=== PATIENT | female | born 1995 | race Caucasian/White ===

== ENCOUNTER → 2024-02-13 | Outpatient (CLI) | payer OTHER ==
[2024-02-13 17:14] LABS: BASO % 0.5 % (0.0-1.0); EOS # 0.1 10^3/uL (0.0-0.5); HEMATOCRIT 42.7 % (36.0-47.0); HEMOGLOBIN 14.3 g/dl (12.0-15.5); LYMPH # 1.7 10^3/uL (1.5-5.0); LYMPH % 28.4 % (24.0-44.0); MEAN CORPUSCULAR HEMOGLOBIN 31.9 pg (27.0-33.0); MEAN CORPUSCULAR HGB CONC 33.5 g/dl (32.0-36.5); MEAN CORPUSCULAR VOLUME 95.3 fl (80.0-96.0); MONO # 0.5 10^3/uL (0.0-0.8); MONO % 7.8 % (2.0-8.0); NEUTROPHILS # 3.7 10^3/uL (1.5-8.5); NEUTROPHILS % 62.1 % (36.0-66.0); PLATELET COUNT, AUTOMATED 182 10^3/uL (150-450); RED BLOOD COUNT 4.48 10^6/uL (4.00-5.40); WHITE BLOOD COUNT 5.9 10^3/uL (4.0-10.0)
[2024-02-13 17:24] LABS: ALBUMIN 4.2 G/DL (3.2-5.2); ALKALINE PHOSPHATASE 57 U/L (46-116); ALT/SGPT 14 U/L (7.0-40); AST/SGOT < 8 U/L (<34); BILIRUBIN,TOTAL 0.7 MG/DL (0.3-1.2); BLOOD UREA NITROGEN 13 MG/DL (9-23); CALCIUM LEVEL 9.4 MG/DL (8.5-10.1); CARBON DIOXIDE LEVEL 26 MMOL/L (20-31); CHLORIDE LEVEL 107 MMOL/L (98-107); FREE T4 1.07 NG/DL (0.89-1.76); GLOMERULAR FILTRATION RATE > 60.0 (>60); GLUCOSE, FASTING 84 MG/DL (60-100); IRON (FE) 142 UG/DL (50-170); PERCENT SATURATION 44.9 % (13.2-45.0); POTASSIUM SERUM 4.4 MMOL/L (3.5-5.1); SODIUM LEVEL 138 MMOL/L (136-145); THYROID STIMULATING HORMONE 0.668 uIU/ML (0.55-4.78); TOTAL IRON BINDING CAPACITY 316 UG/DL (250-425); TOTAL PROTEIN 7.4 G/DL (5.7-8.2)
[2024-02-13 17:25] LABS: FOLATE 7.8 NG/ML (>5.4)
[2024-02-13 17:26] LABS: VITAMIN B12 LEVEL 327 PG/ML (211-911)
== END ==
LOC: M WUC 10:41
PROVIDERS: ATTEND Nurse Practitioner Adult Health
DX: L65.9 Nonscarring hair loss, unspecified (principal)

== ENCOUNTER → 2024-02-25 | Outpatient (CLI) | payer OTHER ==
[2024-02-25 10:33] LABS: URIC ACID 4.1 MG/DL (3.1-7.8)
[2024-02-25 10:34] LABS: C REACTIVE PROTEIN QUANTITATIV < 0.40 MG/DL (<1.0)
[2024-02-26 12:32] LABS: CYCLIC CITRULLINATED PEPTIDE < 16 UNITS (<20)
[2024-02-26 14:24] LABS: RHEUMATOID FACTOR QUANT 3.9 IU/ML (<14)
[2024-02-26 15:23] LABS: ANA PATTERN Nuclear, Nucleolar (NEGATIVE); ANA PATTERN 2 Nuclear, Homogeneous; ANA SCREEN, IFA POSITIVE (NEGATIVE); ANA TITER 2 1:40 titer (NEGATIVE); ANA TITER 3 1:40 titer (<1:40)
== END ==
LOC: M WUC 08:39
PROVIDERS: ATTEND Nurse Practitioner Adult Health
DX: R76.0 Raised antibody titer (principal); L65.9 Nonscarring hair loss, unspecified

== ENCOUNTER → 2024-09-09 | Outpatient (REF) | payer OTHER ==
[2024-09-09 13:28] LABS: APPEARANCE, URINE CLEAR (CLEAR); BACTERIA, URINE AUTO NEGATIVE (NEGATIVE); BILIRUBIN, URINE AUTO NEGATIVE (NEGATIVE); BLOOD, URINE BLOOD NEGATIVE (NEGATIVE); COLOR, URINE STRAW (YELLOW); GLUCOSE, URINE (UA) AUTO NEGATIVE (NEGATIVE); KETONE, URINE AUTO NEGATIVE (NEGATIVE); LEUKOCYTE ESTERASE, URINE AUTO NEGATIVE (NEGATIVE); MUCUS, URINE SMALL (NEGATIVE); NITRITE, URINE AUTO NEGATIVE (NEGATIVE); PROTEIN, URINE AUTO NEGATIVE (NEGATIVE); RBC, URINE AUTO 0 /HPF (0-3); SPECIFIC GRAVITY URINE AUTO 1.006 (1.002-1.035); SQUAMOUS EPITHELIAL CELL UR AU 0 /HPF (0-6); UROBILINOGEN, URINE AUTO 0.2 mg/dL (0.0-2.0); WBC, URINE AUTO 0 /HPF (0-3)
[2024-09-09 14:01] LABS: CREATININE,RANDOM URINE 40.6 MG/DL
[2024-09-09 14:07] LABS: TOTAL PROTEIN,RANDOM URINE < 6.0 MG/DL (0.0-14.0)
[2024-09-09 14:22] LABS: BASO % 0.6 % (0.0-1.0); EOS # 0.1 10^3/uL (0.0-0.5); EOS % 0.9 % (0.0-3.0); HEMATOCRIT 42.2 % (36.0-47.0); HEMOGLOBIN 13.9 g/dl (12.0-15.5); LYMPH # 1.4 10^3/uL (1.5-5.0); LYMPH % 21.2 % (24.0-44.0); MEAN CORPUSCULAR HEMOGLOBIN 31.2 pg (27.0-33.0); MEAN CORPUSCULAR HGB CONC 32.9 g/dl (32.0-36.5); MEAN CORPUSCULAR VOLUME 94.8 fl (80.0-96.0); MONO # 0.3 10^3/uL (0.0-0.8); MONO % 4.9 % (2.0-8.0); NEUTROPHILS # 4.9 10^3/uL (1.5-8.5); NEUTROPHILS % 72.1 % (36.0-66.0); PLATELET COUNT, AUTOMATED 194 10^3/uL (150-450); RED BLOOD COUNT 4.45 10^6/uL (4.00-5.40); WHITE BLOOD COUNT 6.8 10^3/uL (4.0-10.0)
[2024-09-09 14:29] LABS: ERYTHROCYTE SEDIMENTATION RATE 8 mm/hr (0-20)
[2024-09-09 14:52] LABS: ALBUMIN 4.5 G/DL (3.2-5.2); ALKALINE PHOSPHATASE 60 U/L (35-104); ALT/SGPT 20 U/L (7.0-40); AST/SGOT 8 U/L (<34); BILIRUBIN,TOTAL 0.7 MG/DL (0.3-1.2); BLOOD UREA NITROGEN 13 MG/DL (9-23); C REACTIVE PROTEIN QUANTITATIV < 0.50 MG/DL (<1.0); CALCIUM LEVEL 9.6 MG/DL (8.5-10.1); CARBON DIOXIDE LEVEL 26 MMOL/L (20-31); CHLORIDE LEVEL 109 MMOL/L (98-107); CREATININE FOR GFR 0.57 MG/DL (0.55-1.30); GLOMERULAR FILTRATION RATE > 60.0 (>60); GLUCOSE, FASTING 79 MG/DL (60-100); POTASSIUM SERUM 4.1 MMOL/L (3.5-5.1); SODIUM LEVEL 140 MMOL/L (136-145)
[2024-09-09 14:53] LABS: COMPLEMENT C3 123.8 MG/DL (82.0-160.0); COMPLEMENT C4 18.5 MG/DL (12-36)
[2024-09-09 15:06] LABS: HEPATITIS B SURFACE ANTIGEN NEGATIVE (NEGATIVE)
[2024-09-09 15:42] LABS: HEPATITIS C VIRUS ABY INDEX < 0.02 INDEX (<0.8)
[2024-09-10 14:32] LABS: HEPATITIS B CORE ANTIBODY IGG NON-REACTIVE (NON-REACTIVE)
== END ==
LOC: M SFHCRHEU 09:14
PROVIDERS: ATTEND Internal Medicine Rheumatology
DX: R76.8 Other specified abnormal immunological findings in serum (principal); L65.9 Nonscarring hair loss, unspecified; R21 Rash and other nonspecific skin eruption

== ENCOUNTER → 2024-11-15 | Outpatient (REF) | payer OTHER ==
[2024-11-15 11:02] LABS: CREATININE,RANDOM URINE 45.2 MG/DL
[2024-11-15 11:08] LABS: TOTAL PROTEIN,RANDOM URINE < 6.0 MG/DL (0.0-14.0)
[2024-11-15 12:00] LABS: Trichomonas vaginalis (AMP) NOT DETECTED (NEGATIVE)
[2024-11-15 12:24] LABS: GC DNA AMPLIFICATION NEGATIVE (NEGATIVE)
== END ==
LOC: M SFHCWAGY 10:07
PROVIDERS: ATTEND Obstetrics & Gynecology
DX: O10.011 Pre-existing essential hypertension complicating pregnancy, first trimester (principal)

== ENCOUNTER → 2024-11-19 | Outpatient (CLI) | payer OTHER ==
[2024-11-19 13:26] LABS: HEMATOCRIT 36.1 % (36.0-47.0); HEMOGLOBIN 12.2 g/dl (12.0-15.5); MEAN CORPUSCULAR HEMOGLOBIN 31.9 pg (27.0-33.0); MEAN CORPUSCULAR HGB CONC 33.8 g/dl (32.0-36.5); MEAN CORPUSCULAR VOLUME 94.3 fl (80.0-96.0); PLATELET COUNT, AUTOMATED 185 10^3/uL (150-450); RED BLOOD COUNT 3.83 10^6/uL (4.00-5.40); WHITE BLOOD COUNT 10.5 10^3/uL (4.0-10.0)
[2024-11-19 13:47] LABS: URIC ACID 4.3 MG/DL (3.1-7.8)
[2024-11-19 13:49] LABS: LDH LACTATE DEHYDROGENASE 122 U/L (120-246)
[2024-11-19 13:50] LABS: ALT/SGPT 15 U/L (7.0-40); AST/SGOT < 8 U/L (<34); BILIRUBIN,TOTAL 0.5 MG/DL (0.3-1.2); CREATININE FOR GFR 0.65 MG/DL (0.55-1.30); GLOMERULAR FILTRATION RATE > 60.0 (>60)
[2024-11-19 14:16] LABS: HIV 1&2 SCREEN NEGATIVE (NEGATIVE)
[2024-11-19 14:24] LABS: HEPATITIS C VIRUS ABY INDEX 0.05 INDEX (<0.8)
== END ==
LOC: M PLALAB 11:36
PROVIDERS: ATTEND Obstetrics & Gynecology
DX: O10.011 Pre-existing essential hypertension complicating pregnancy, first trimester (principal)

== ENCOUNTER → 2025-04-01 | Outpatient (CLI) | payer OTHER ==
[2025-04-01 13:05] LABS: GLUCOSE CHALLENGE TEST 1 HOUR 55 MG/DL (LESS THAN 140)
[2025-04-01 13:11] LABS: PLATELET COUNT, AUTOMATED 188 10^3/uL (150-450)
[2025-04-01 13:38] LABS: HIV 1&2 SCREEN NEGATIVE (NEGATIVE)
[2025-04-01 13:46] LABS: HEPATITIS C VIRUS ABY INDEX < 0.02 INDEX (<0.8)
[2025-04-01 14:19] LABS: Trichomonas vaginalis (AMP) NOT DETECTED (NEGATIVE)
[2025-04-01 14:44] LABS: GC DNA AMPLIFICATION NEGATIVE (NEGATIVE)
== END ==
LOC: M PLALAB 10:18
PROVIDERS: ATTEND Obstetrics & Gynecology
DX: Z33.1 Pregnant state, incidental (principal)

== ENCOUNTER → 2025-05-02 | Outpatient (CLI) | payer OTHER | LOC: M WHC 06:48 | PROVIDERS: ATTEND Obstetrics & Gynecology | DX: O10.013 Pre-existing essential hypertension complicating pregnancy, third trimester (principal); Z3A.30 30 weeks gestation of pregnancy ==

== ENCOUNTER → 2025-06-01 | Outpatient (REF) | payer OTHER | LOC: M PLALAB 11:01 | PROVIDERS: ATTEND Student in an Organized Health Care Education/Training Program | DX: Z3A.35 35 weeks gestation of pregnancy (principal) ==

== ENCOUNTER → 2025-06-07 | Outpatient (CLI) | payer OTHER | LOC: M WHC 06:58 | PROVIDERS: ATTEND Advanced Practice Midwife | DX: O10.013 Pre-existing essential hypertension complicating pregnancy, third trimester (principal) ==

== ENCOUNTER → 2025-06-15 | Outpatient (CLI) | payer OTHER ==
[~2025-06-15] MED LIST: ASPI81TA26 PO; LABE100T40 PO; MULTTAB20 PO; PREN200C PO
[2025-06-15 15:26] LABS: PLATELET COUNT, AUTOMATED 198 10^3/uL (150-450)
[2025-06-15 15:31] LABS: TOTAL PROTEIN,RANDOM URINE < 6.0 MG/DL (0.0-14.0)
[2025-06-15 15:54] LABS: LDH LACTATE DEHYDROGENASE 200 U/L (120-246)
[2025-06-15 15:55] LABS: ALT/SGPT 17 U/L (7.0-40); AST/SGOT 18 U/L (<34); CREATININE FOR GFR 0.59 MG/DL (0.55-1.30); GLOMERULAR FILTRATION RATE > 90.0 (>60)
== END ==
LOC: M PLALAB 13:46
PROVIDERS: ATTEND Advanced Practice Midwife
DX: O10.013 Pre-existing essential hypertension complicating pregnancy, third trimester (principal); Z3A.00 Weeks of gestation of pregnancy not specified

== ENCOUNTER 2025-06-24 16:04 | Inpatient (IN) | payer OTHER ==
[2025-06-24] VITALS (7 sets, daily range): BP systolic 142–169; BP diastolic 85–108; TEMP 99–99.2
[~2025-06-24] VITALS: Ht 152.4 cm; Wt 69.3 kg
[2025-06-24] MEDS ORDERED: LABE100T40 PO (16:31)
[2025-06-24] MEDS ORDERED: ASPI81TA26 PO (16:31)
[2025-06-24] MEDS ORDERED: PREN200C PO (16:31)
[2025-06-24] MEDS ORDERED: MULTTAB20 PO (16:31)
[2025-06-24] MEDS ORDERED: HOME MED LIST COMPLETE! XX SCH (16:35)
[2025-06-24] MEDS ORDERED: METHYLERGONOVINE MALEATE 0.2 MG/ML 1 ML VIAL IM PRN (17:00)
[2025-06-24] MEDS ORDERED: OXYTOCIN DRIP 30 UNITS in IV 1 EA IV PRN (17:00)
[2025-06-24] MEDS ORDERED: TRANEXAMIC ACID INJection 1,000 MG in NS 100 ML IV PRN (17:00)
[2025-06-24 17:47] LABS: PLATELET COUNT, AUTOMATED 192 10^3/uL (150-450)
[2025-06-24 18:01] LABS: TOTAL PROTEIN,RANDOM URINE 8.2 MG/DL (0.0-14.0)
[2025-06-24] MEDS: miSOPROStol 50 MCG 1/2 TABLET PO SCH (18:04)
[2025-06-24] MEDS: LABETALOL 100 MG TAB PO SCH (18:05)
[2025-06-24 18:07] LABS: LDH LACTATE DEHYDROGENASE 314 U/L (120-246)
[2025-06-24 18:08] LABS: ALT/SGPT 21 U/L (7.0-40); AST/SGOT 33 U/L (<34); CREATININE FOR GFR 0.60 MG/DL (0.55-1.30); GLOMERULAR FILTRATION RATE > 90.0 (>60)
[2025-06-24 18:34] LABS: HIV 1&2 SCREEN NEGATIVE (NEGATIVE)
[2025-06-24 18:42] LABS: HEPATITIS C VIRUS ABY INDEX < 0.02 INDEX (<0.8)
[2025-06-25] VITALS (43 sets, daily range): BP systolic 132–185; BP diastolic 75–112; TEMP 98–99.6
[2025-06-25] MEDS: OXYTOCIN DRIP 30 UNITS in IV 1 EA IV SCH ×2 (00:30→16:33)
[2025-06-25] MEDS ORDERED: LABETALOL 100 MG/20 ML VIAL IV ONE (10:50)
[2025-06-25] MEDS: MAG Sulf (L&D) 4 GM/100 ML 4 GM in IV 1 EA IV ONE (11:15)
[2025-06-25] MEDS: LR 1,000 ML IV SCH (11:15)
[2025-06-25 11:33] LABS: PLATELET COUNT, AUTOMATED 181 10^3/uL (150-450)
[2025-06-25] MEDS: MAG Sulf (OBGYN) 20GM/500ML 20,000 MG in IV 1 EA IV SCH (11:43)
[2025-06-25 11:55] LABS: LDH LACTATE DEHYDROGENASE 312 U/L (120-246)
[2025-06-25 11:59] LABS: ALT/SGPT 22 U/L (7.0-40); AST/SGOT 30 U/L (<34); CALCIUM LEVEL 8.9 MG/DL (8.5-10.1); CARBON DIOXIDE LEVEL 21 MMOL/L (20-31); CHLORIDE LEVEL 105 MMOL/L (98-107); CREATININE FOR GFR 0.65 MG/DL (0.55-1.30); GLOMERULAR FILTRATION RATE > 90.0 (>60); POTASSIUM SERUM 4.8 MMOL/L (3.5-5.1); SODIUM LEVEL 138 MMOL/L (136-145)
[2025-06-25] MEDS: BUTORPHANOL 2 MG/ML 1 ML VIAL IV ONE (13:12)
[2025-06-25] MEDS ORDERED: LABETALOL 100 MG TAB PO SCH (21:00)
[2025-06-25] MEDS: LIDOCAINE 1% MDV 20 ML VIAL INFIL PRN (22:05)
[2025-06-25] MEDS: LABETALOL 100 MG TAB PO SCH (22:24)
[2025-06-25] MEDS ORDERED: METHYLERGONOVINE MALEATE 0.2 MG TAB PO PRN (22:35)
[2025-06-25] MEDS ORDERED: DOCUSATE SODIUM 100 MG CAPSULE PO PRN (22:35)
[2025-06-25] MEDS ORDERED: ONDANSETRON 4MG/2ML VIAL IV PRN (22:35)
[2025-06-25] MEDS ORDERED: OXYTOCIN DRIP 30 UNITS in IV 1 EA IV SCH (22:35)
[2025-06-25] MEDS ORDERED: IBUPROFEN 600 MG TAB PO PRN (22:35)
[2025-06-26] VITALS (25 sets, daily range): BP systolic 89–151; BP diastolic 58–94; TEMP 98.4–98.9; O2SAT 98–100
[2025-06-26] MEDS: IBUPROFEN 800 MG TAB PO PRN (01:10)
[2025-06-26 06:59] LABS: PLATELET COUNT, AUTOMATED 167 10^3/uL (150-450)
[2025-06-26] MEDS: PRENATAL VITAMINS CHEWABLE TABLET PO SCH (08:45)
[2025-06-26] MEDS: ACETAMINOPHEN 500 MG TAB PO PRN (09:10)
[2025-06-26] MEDS: ACETAMINOPHEN 325 MG TAB PO PRN (20:12)
[2025-06-26] MEDS: DIBUCAINE 1% OINTMENT 30 GM TOP PRN (20:13)
[2025-06-27 02:00] VITALS: BP 114/60; O2SAT 99
[2025-06-27 06:00] VITALS: BP 131/73; O2SAT 99
[2025-06-27] MEDS: MEASLES,MUMPS,RUBELLA VACCINE INJ (MMR-II) SC.IMMUN ONE (07:12)
[2025-06-27 08:30] VITALS: BP 152/88
[2025-06-27 09:31] VITALS: BP 124/76; O2SAT 98
[2025-06-27] MEDS ORDERED: LABE100T40 PO (10:07)
[2025-06-27] MEDS ORDERED: LABETALOL 100 MG/20 ML VIAL ONE (13:44)
== END 2025-06-27 13:45 | disposition home or self-care (01) | DRG 807 ==
LOC: M LDI 16:04 → M OBS 06-26 17:30
PROVIDERS: ADMIT Advanced Practice Midwife; ATTEND Student in an Organized Health Care Education/Training Program
PROC: 3E0P7GC Introduction of Other Therapeutic Substance into Female Reproductive, Via Natural or Artificial Opening (ICD-10-PCS; 2025-06-24)
PROC: 10E0XZZ Delivery of Products of Conception, External Approach (ICD-10-PCS; principal; 2025-06-25)
PROC: 0KQM0ZZ Repair Perineum Muscle, Open Approach (ICD-10-PCS; 2025-06-25)
PROC: 10907ZC Drainage of Amniotic Fluid, Therapeutic from Products of Conception, Via Natural or Artificial Opening (ICD-10-PCS; 2025-06-25)
DX: O11.4 Pre-existing hypertension with pre-eclampsia, complicating childbirth (principal); Z37.0 Single live birth; Z3A.38 38 weeks gestation of pregnancy; O70.1 Second degree perineal laceration during delivery; Z79.82 Long term (current) use of aspirin; Z79.899 Other long term (current) drug therapy; O10.02 Pre-existing essential hypertension complicating childbirth